=== PATIENT | male | born 1980 ===

== ENCOUNTER 2018-06-23 09:20 | Outpatient (CLI) | payer OTHER ==
[~2018-06-23] VITALS: Ht 182.9 cm; Wt 127.0 kg
== END 2018-06-23 17:21 | disposition home or self-care (01) ==
LOC: OFIC 805 09:20
DX: H60.591 Other noninfective acute otitis externa, right ear (principal); H90.41 Sensorineural hearing loss, unilateral, right ear, with unrestricted hearing on the contralateral side; H93.11 Tinnitus, right ear; H61.21 Impacted cerumen, right ear

== ENCOUNTER 2018-06-30 08:34 | Outpatient (CLI) | payer OTHER ==
[~2018-06-30] VITALS: Ht 182.9 cm; Wt 127.0 kg
== END 2018-06-30 08:50 | disposition home or self-care (01) ==
LOC: OFIC 805 08:34
DX: H60.8X1 Other otitis externa, right ear (principal); H93.11 Tinnitus, right ear; R22.1 Localized swelling, mass and lump, neck; H91.8X3 Other specified hearing loss, bilateral

== ENCOUNTER 2018-06-30 09:49 | Outpatient (CLI) | payer OTHER | END 2018-07-01 10:00 | disposition home or self-care (01) | LOC: LAB 09:49 | DX: R22.1 Localized swelling, mass and lump, neck (principal); H61.311 Acquired stenosis of right external ear canal secondary to trauma ==

== ENCOUNTER 2018-07-10 09:39 | Outpatient (CLI) | payer OTHER ==
[~2018-07-10] VITALS: Ht 182.9 cm; Wt 127.0 kg
== END 2018-07-10 10:00 | disposition home or self-care (01) ==
LOC: OFIC 805 09:39
DX: H60.591 Other noninfective acute otitis externa, right ear (principal); R22.1 Localized swelling, mass and lump, neck

== ENCOUNTER 2019-02-15 14:33 | Outpatient (CLI) | payer OTHER ==
[~2019-02-15] VITALS: Ht 182.9 cm; Wt 127.0 kg
== END 2019-02-15 14:45 | disposition home or self-care (01) ==
LOC: OFIC 805 14:33
DX: R42 Dizziness and giddiness (principal)